=== PATIENT | male | born 2000 | race Caucasian/White ===

== ENCOUNTER 2021-07-01 04:27 | Emergency (ER) | payer BC ==
[~2021-07-01] VITALS: Ht 182.9 cm; Wt 81.8 kg
[2021-07-01 04:31] VITALS: TEMP 98.7
[2021-07-01 04:56] LABS: COLLECTION METHOD CLEAN CATCH
[2021-07-01 05:08] LABS: PH 5 (5-8); SQUAMOUS EPITHELIAL None Seen /hpf (0-10); URINE APPEARANCE Clear (CLEAR/HAZY); URINE BACTERIA None Seen (NONE SEEN); URINE BILIRUBIN Negative (NEGATIVE); URINE BLOOD Negative (NEGATIVE); URINE COLOR Yellow (YELLOW); URINE GLUCOSE Negative (NEGATIVE); URINE KETONE Negative (NEGATIVE); URINE LEUKOCYTE ESTERASE Negative (NEGATIVE); URINE NITRATE Negative (NEGATIVE); URINE PROTEIN(semi-quant) Negative (NEGATIVE); URINE RBC 0-2 /hpf (0-2); URINE UROBILINOGEN Negative (NEGATIVE)
[2021-07-01] MEDS ORDERED: DOXYCYCLINE 10100 MG PO (05:43)
[2021-07-01 05:47] VITALS: BP 140/70; PULSE 76
== END 2021-07-01 05:47 | disposition home or self-care (01) ==
LOC: COL.ER 04:27
PROVIDERS: Emergency Medicine
DX: N50.812 Left testicular pain (principal); Z88.0 Allergy status to penicillin
CPT/HCPCS: J0696; J1885

== ENCOUNTER 2021-07-04 14:22 | Emergency (ER) | payer BC ==
[~2021-07-04] VITALS: Ht 182.9 cm; Wt 81.8 kg
[~2021-07-04 14:22] MED LIST: DOXYCYCLINE 10100 MG PO
[2021-07-04] MEDS ORDERED: BACTRIM DS 8001 TAB PO (17:07)
[2021-07-04 17:30] VITALS: BP 126/64; PULSE 52; TEMP 97.5
== END 2021-07-04 17:30 | disposition home or self-care (01) ==
LOC: COL.ER 14:22
DX: N45.1 Epididymitis (principal)

== ENCOUNTER 2021-10-01 07:52 | Emergency (ER) | payer BC ==
[~2021-10-01] VITALS: Ht 182.9 cm; Wt 79.5 kg
[~2021-10-01 07:52] MED LIST changes: +BACTRIM DS 8001 TAB PO
[2021-10-01 08:08] VITALS: TEMP 97.5
[2021-10-01 08:09] LABS: COLLECTION METHOD CLEAN CATCH
[2021-10-01 08:17] LABS: PH 5 (5-8); SQUAMOUS EPITHELIAL None Seen /hpf (0-10); URINE APPEARANCE Clear (CLEAR/HAZY); URINE BACTERIA None Seen /hpf (NONE SEEN); URINE BILIRUBIN Negative (NEGATIVE); URINE BLOOD Negative (NEGATIVE); URINE COLOR Yellow (YELLOW); URINE GLUCOSE Negative (NEGATIVE); URINE KETONE Negative (NEGATIVE); URINE LEUKOCYTE ESTERASE Negative (NEGATIVE); URINE NITRATE Negative (NEGATIVE); URINE PROTEIN(semi-quant) Negative (NEGATIVE); URINE RBC None Seen /hpf (0-2); URINE UROBILINOGEN Negative (NEGATIVE)
[2021-10-01] MEDS ORDERED: MOTRIN 800800 MG/TAB PO (09:32)
[2021-10-01] MEDS ORDERED: NORCO 325 MG-51 TAB PO (09:32)
[2021-10-01 10:00] VITALS: BP 118/59; PULSE 77
== END 2021-10-01 10:00 | disposition home or self-care (01) ==
LOC: COL.ER 07:52
PROVIDERS: Personal Emergency Response Attendant
DX: N50.812 Left testicular pain (principal)